=== PATIENT | female | born 1960 | race Caucasian/White ===

== ENCOUNTER 2022-12-24 23:16 | Emergency (ER) | payer BC ==
[2022-12-25 00:40] LABS: INR-International Normal Ratio 1.1; Prothrombin Time 14.4 sec (12.0-14.7)
[2022-12-25 00:45] LABS: Hemoglobin 12.5 g/dL (12.0-16.0); Mean Corpuscular Hemoglobin 25.9 pg (27.0-31.0); Mean Corpuscular Volume 83.6 fl (78.0-98.0); Mean Platelet Volume 8.4 fL (7.4-10.4); Platelet Count 88 10x3/uL (130-400); RBC Distribution Width 17.5 % (11.5-14.5); White Blood Cell (WBC) Count 3.7 10x3/uL (4.8-10.8)
[2022-12-25 00:47] LABS: #Eosinphils 0.2 thou/uL (0.0-0.7); #Lymphocytes 0.9 thou/uL (1.20-3.40); #Monocytes 0.6 thou/uL (0.11-0.59); %Basophils 1.3 % (0.0-1.0); %Eosinophils 4.6 % (0.0-10.0); %Lymphocytes 24.2 % (21.0-51.0); %Monocytes 15.2 % (0.0-10.0); %Neutrophils 54.8 % (42.0-75.0)
[2022-12-25 01:00] LABS: ALT (SGPT) 20 U/L (8-55); AST (SGOT) 24 U/L (5-34); Albumin 3.5 g/dL (3.5-5.0); Alkaline Phosphatase 94 U/L (40-110); Anion Gap 14 mmol/L (10-20); BUN (Urea Nitrogen) 14 mg/dL (9.8-20.1); Bilirubin, Total 0.6 mg/dL (0.2-1.2); Calc. Creatinine Clearance 0 mL/min (70-130); Calcium 9.1 mg/dL (7.8-10.44); Carbon Dioxide 21 mmol/L (22-29); Chloride 109 mmol/L (98-107); Estimated GFR 88; Globulin 3.5 g/dL (2.4-3.5); Glucose 104 mg/dL (70-105); Potassium 4.2 mmol/L (3.5-5.1); Sodium 140 mmol/L (136-145)
== END 2022-12-25 01:44 | disposition short-term general hospital (02) ==
LOC: NAV ERS 23:16
DX: M79.662 Pain in left lower leg (principal); Z87.891 Personal history of nicotine dependence
CPT/HCPCS: 36415; 80053; 82140; 85025; 85379; 85610; 85730; 99284